=== PATIENT | male | born 1965 | race Caucasian/White ===

== ENCOUNTER → 2021-11-06 12:25 | Outpatient (CLI) | payer BC, SELFPAY ==
--- NOTE | ~2021-11-06 | XR_ITS ---
EXAMINATION: XR lumbar spine 2-3V DATE: 11/06/2021 12:41 INDICATION: Low back pain. TECHNIQUE: 3 views of lumbar spine upright were obtained. COMPARISON: None. FINDINGS: There is 11 degrees levoscoliosis of lumbar spine. There are chronic bilateral L5 pars defe cts. There is 5 mm anterolisthesis of L5 on S1. There is mild chronic height loss of L5 vertebral bod y posteriorly. There is mildly decreased disc height from L1-L2 through L4-L5 and severely decreased disc height at L5-S1. There are endplate osteophytes at all levels. There is at least mild multilevel facet joint osteoarthritis. IMPRESSION: 1. Severe lower lumbar spondylosis. 2. Chronic L5 pars defects with grade 1 anterolisthesis of L5 on S1. Reviewed, dictated and finalized at location B. ERY REPAIRER
== END ==
DX: M54.50 Low back pain, unspecified (principal); M47.816 Spondylosis without myelopathy or radiculopathy, lumbar region; M43.17 Spondylolisthesis, lumbosacral region; M43.8X6 Other specified deforming dorsopathies, lumbar region
CPT/HCPCS: 72100

== ENCOUNTER 2025-09-05 14:31 | Outpatient (CLI) | payer BC, SELFPAY ==
--- NOTE | ~2025-09-05 | MR_ITS ---
EXAM/PROCEDURE: MR lumbar spine wo con HISTORY: LOW BACK PAIN COMPARISON: None available. TECHNIQUE: Noncontrast enhanced multiplanar lumbar spine MRI performed. FINDINGS: Degenerative changes present essentially throughout the lumbar spine involving disc spaces and posterior elements. No acute or aggressive bony or soft tissue process seen. The conus tapers normally at L1. Level specific findings as follows: T11-T12: Mild degenerative change T12-L1: Mild degenerative change L1-2: Mild facet hyperostosis and slight thickening of ligamentum flavum with trace amounts of fluid in the facet joints. Mild posterior disc bulging as well with mild left and mild to moderate right-sided neural foraminal narrowing. Punctate T2 weighted hyperintense focus in the posterior annulus could represent tiny annular tear. L2-3: More severe broad-based disc bulging as well as facet hyperostosis with slight narrowing of the lateral recesses. No spinal canal stenosis or discrete disc protrusion. Mild bilateral neural foraminal narrowing. L3-4: Similar changes as at L2-3 with facet hyperostosis, thickening of ligamentum flavum and trace amounts of fluid in the facet joints. Narrowing more pronounced in the lateral recesses bordering on stenosis of the lateral recesses. No spinal canal stenosis or discrete disc protrusion. Mild bilateral neural foraminal narrowing. L4-5: More severe broad-based disc bulging and/or posterior spondylosis, as well as more pronounced facet hyperostosis and thickening of ligamentum flavum, left worse than right. This results in bilateral stenosis in the lateral recesses, and mild central canal stenosis. No discrete disc protrusion. Moderately severe left and mild to moderate right-sided neural foraminal narrowing. L5-S1: There is 6-7 mm grade 1 anterolisthesis L5 on S1 associated with facet subluxation. Facet hyperostosis contributes to moderately severe bilateral neural foraminal narrowing, left worse than right. No discrete disc protrusion. IMPRESSION: 1. Multilevel degenerative changes most advanced at L4-5 and L5 on as detailed above. 2. No acute or aggressive bony or soft tissue process seen. Reviewed, dictated and finalized at location A. 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
== END 2025-09-05 14:32 | disposition home or self-care (01) ==
LOC: GOSHIMG 14:32
PROVIDERS: PCP Physician Assistant; Visit Provider Internal Medicine
DX: M47.896 Other spondylosis, lumbar region (principal)
CPT/HCPCS: 72148